=== PATIENT | female | born 1980 | race Caucasian/White ===

== ENCOUNTER 2016-10-24 04:57 | Emergency (ER) | payer OTHER ==
[~2016-10-24] VITALS: Ht 162.6 cm; Wt 104.3 kg
[~2016-10-24 04:57] MED LIST: DILT30TA26 PO; DIVA125T PO; ESTR2TAB PO; HYDR25TA9 PO; LEVO200T PO; LISI10TA2 PO; MONT10TA6 PO; MULT-246 PO; OXYC40TA21 PO; PREG25CA PO; PROAIR HFA8.5 GM IH; VENTOLIN HFA18 GM IH
[2016-10-24] MEDS ORDERED: IV NORMAL SALINE 1000ML BAG 1,000 ML IV ONE (06:00)
[2016-10-24 06:02] LABS: BASO # 0.1 x10^3/uL (0.0-0.2); BASO % 0 % (0-3); EOS % 0 % (0-3); HEMOGLOBIN 14.2 g/dL (12.0-15.5); LYMPH # 2.6 x10^3/uL (1.0-4.8); LYMPH % 19 % (24-48); MEAN CORPUSCULAR HEMOGLOBIN 29 pg (25-35); MEAN CORPUSCULAR HGB CONC 35 g/dL (31-37); MEAN CORPUSCULAR VOLUME 85 fL (79-100); MONO % 8 % (0-9); NEUT % 72 % (31-73); PLATELET COUNT 260 x10^3/uL (140-400); RED BLOOD COUNT 4.84 x10^6/uL (3.50-5.40); RED CELL DISTRIBUTION WIDTH 12.6 % (11.5-14.5)
[2016-10-24 06:06] VITALS: BP 143/81
--- NOTE | 2016-10-24 06:07 | PHYS DOC ---
Past Medical History Past Medical History: Hypertension, Hypothyroid, Other Additional Past Medical Histor: CHRONIC BACK PAIN Past Surgical History: Tonsillectomy Additional Past Surgical Histo: ovarian cyst; bladder sling; ovarian cyst; breast reduction Alcohol Use: None Drug Use: None Adult General Chief Complaint Chief Complaint: POST-OP PROBLEM HPI HPI 36-year-old female presenting to the emergency department with bleeding after having a tonsillectomy on Monday. She woke up this morning around 4:00 and started feeling blood running down her throat. She is been spitting up 3 blood this morning. Onset this morning. Location posterior pharynx/tonsils. Duration constant. No alleviating factors. Review of Systems Review of Systems Positive for lightheadedness. Negative for chest pain shortness of breath nausea vomiting. All other review of systems is negative unless otherwise noted in history of present illness. Current Medications Current Medications Current Medications Medications (Trade) Dose Ordered Sig/Sherrill Start Time Stop Time Status Last Admin Dose Admin Sodium Chloride (Iv Sodium Chloride 0.9% 1000ml Bag) 1,000 ml @ 1,000 mls/hr 1X ONCE 10/24/16 06:00 10/24/16 06:29 DC 10/24/16 05:30 1,000 MLS/HR Allergies Allergies Allergies Coded Allergies Type Severity Reaction Last Updated Verified NSAIDS (Non-Steroidal Anti-Inflamma Allergy Intermediate VOMITING 02/23/14 Yes gabapentin Allergy Intermediate Swelling 02/23/14 Yes morphine Allergy Intermediate VOMITING 02/23/14 Yes adhesive Allergy Mild Rash 02/23/14 Yes Physical Exam Physical Exam Constitutional: Well developed, well nourished, no acute distress, non-toxic appearance. HENT: Normocephalic, atraumatic, bilateral external ears normal, oropharynx mild bleeding patient maintaining airway without difficulty at this time. Eyes: PERRLA, EOMI, conjunctiva normal, no discharge. Neck: Normal range of motion, no tenderness, supple, no stridor. [] Cardiovascular:Heart rate regular rhythm, no murmur Lungs & Thorax: Bilateral breath sounds clear to auscultation Abdomen: Bowel sounds normal, soft, no tenderness, no masses, no pulsatile masses. [] Skin: Warm, dry, no erythema, no rash. Back: No tenderness, no CVA tenderness. [] Extremities: No tenderness, no cyanosis, no clubbing, ROM intact, no edema. Neurologic: Alert and oriented X 3, normal motor function, normal sensory function, no focal deficits noted. [] Psychologic: Affect normal, judgement normal, mood normal. Current Patient Data Vital Signs Vital Signs Date Time Temp Pulse Resp B/P Pulse Ox O2 Delivery O2 Flow Rate FiO2 10/24/16 06:06 69 143/81 98 Room Air 10/24/16 04:57 98.8 18 98.8 Lab Values Laboratory Tests Test 10/24/16 05:07 10/24/16 05:45 White Blood Count 14.0x10^3/uL (4.0-11.0) H Red Blood Count 4.84x10^6/uL (3.50-5.40) Hemoglobin 14.2g/dL (12.0-15.5) Hematocrit 41.0% (36.0-47.0) Mean Corpuscular Volume 85fL (79-100) Mean Corpuscular Hemoglobin 29pg (25-35) Mean Corpuscular Hemoglobin Concent 35g/dL (31-37) Red Cell Distribution Width 12.6% (11.5-14.5) Platelet Count 260x10^3/uL (140-400) Neutrophils (%) (Auto) 72% (31-73) Lymphocytes (%) (Auto) 19% (24-48) L Monocytes (%) (Auto) 8% (0-9) Eosinophils (%) (Auto) 0% (0-3) Basophils (%) (Auto) 0% (0-3) Neutrophils # (Auto) 10.1x10^3uL (1.8-7.7) H Lymphocytes # (Auto) 2.6x10^3/uL (1.0-4.8) Monocytes # (Auto) 1.2x10^3/uL (0.0-1.1) H Eosinophils # (Auto) 0.1x10^3/uL (0.0-0.7) Basophils # (Auto) 0.1x10^3/uL (0.0-0.2) Prothrombin Time 13.4SEC (11.7-14.0) Prothrombin Time INR 1.1 (0.8-1.1) PTT 29SEC (24-38) Sodium Level 138mmol/L (136-145) Potassium Level 3.5mmol/L (3.5-5.1) Chloride Level 103mmol/L (98-107) Carbon Dioxide Level 27mmol/L (21-32) Anion Gap 8 (6-14) Blood Urea Nitrogen 10mg/dL (7-20) Creatinine 0.8mg/dL (0.6-1.0) Estimated GFR (Cockcroft-Gault) 81.6 Glucose Level 122mg/dL (70-99) H Calcium Level 8.5mg/dL (8.5-10.1) Laboratory Tests 10/24/16 05:07 Laboratory Tests 10/24/16 05:45 EKG EKG [] Radiology/Procedures Radiology/Procedures [] Course & Med Decision Making Course & Med Decision Making Pertinent Labs and Imaging studies reviewed. (See chart for details) 36-year-old female presenting to the emergency department today with a post tonsillectomy bleed. Vital signs unremarkable. Patient maintaining airway. There was an episode where the patient's blood pressure was recorded to be low, after evaluating the patient her heart rate had not gone up and repositioning of the blood pressure cuff nearly immediately afterwards showed a normal blood pressure. Likely not accurate blood pressure. Because we do not have ENT our hospital the patient was transferred to the [facility] for evaluation and admission. Dragon Disclaimer Dragon Disclaimer This electronic medical record was generated, in whole or in part, using a voice recognition dictation system. Departure Departure Impression: Primary Impression: Post-tonsillectomy hemorrhage Disposition: 05 TRANSFER OTHER Condition: STABLE BACILIO JUNIOR MD Oct 24, 2016 06:06
[2016-10-24 06:14] LABS: CALCIUM 8.5 mg/dL (8.5-10.1); CREATININE 0.8 mg/dL (0.6-1.0); GFR 81.6; POTASSIUM 3.5 mmol/L (3.5-5.1)
[2016-10-24 06:37] LABS: INR 1.1 (0.8-1.1); PROTHROMBIN TIME PATIENT 13.4 SEC (11.7-14.0)
== END 2016-10-24 06:18 | disposition short-term general hospital (02) ==
LOC: ER 04:57
DX: J95.830 Postprocedural hemorrhage of a respiratory system organ or structure following a respiratory system procedure (principal); E03.9 Hypothyroidism, unspecified; I10 Essential (primary) hypertension; G89.29 Other chronic pain; Z88.5 Allergy status to narcotic agent; Z88.8 Allergy status to other drugs, medicaments and biological substances; Y83.8 Other surgical procedures as the cause of abnormal reaction of the patient, or of later complication, without mention of misadventure at the time of the procedure; Y92.89 Other specified places as the place of occurrence of the external cause
CPT/HCPCS: 36415; 80048; 85027; 85610; 85730; 86850; 86900; 86901; 96360; 99285; J7030